=== PATIENT | female | born 1965 | race Caucasian/White ===

== ENCOUNTER 2016-02-24 09:23 | Emergency (ER) | payer OTHER ==
[2016-02-24] MEDS ORDERED: HYDROmorphone 1 MG/ML 1 ML SYRINGE IVP STA (10:31)
[2016-02-24] MEDS ORDERED: KETOROLAC 60 MG/2 ML VIAL IVP STA (10:31)
[2016-02-24] MEDS ORDERED: ONDANSETRON 4 MG/2 ML VIAL IVP STA (10:31)
--- NOTE | 2016-02-24 10:37 | ED ---
General Adult HPI - General Chief complaint: Back Pain/Injury Stated complaint: Back pain Time Seen by Provider: 02/24/16 10:00 Source: patient, RN notes reviewed Mode of arrival: ambulatory Limitations: no limitations - History of Present Illness Initial comments: This is a 51-year-old female who presents to the emergency department complaining of lower back pain. Patient states she's had 2 previous surgeries one of which involved placement of a cage. Patient states she started having pain on Monday should she took a warm shower and while in the shower the pain got so severe she couldn't stand it anymore she slowly sat down and needed assistance getting out of the tub. According to her at that point her right leg had complete paralysis in that lasted until last night when he started to slowly come back and now she states she can move it but it hurts so bad it makes it difficult for her to move. She states the pain radiates from her lower back down to the posterior aspect of her right knee patient denies any injury or trauma. Patient denies any urinary incontinence or retention. Patient denies any numbness in patient denies any area of weakness. Patient states the pain is so bad now she has become very nauseated. Patient could not get around on her own she needs assistance. When I ask her if the pain was causing her not able move her leg over the last couple of days she believes that she was unable to move it even if she didn't have the pain. Patient denies any recent fever or chills patient denies any recent procedures on her back. - Related Data Home Medications Medication Instructions Recorded Confirmed ARIPiprazole [Abilify] 5 mg PO HS 09/08/14 02/24/16 Albuterol Inhaler [Ventolin 2 puff INHALATION RT-Q6H PRN 09/08/14 02/24/16 Inhaler] Ibuprofen [Advil] 800 mg PO Q8HR PRN 09/08/14 02/24/16 Montelukast [Singulair] 10 mg PO HS 09/08/14 02/24/16 Omalizumab [Xolair] 150 mg SQ Q30D 09/08/14 02/24/16 clonazePAM [KlonoPIN] 0.5 mg PO BID 09/08/14 02/24/16 Albuterol Nebulized [Ventolin 2.5 mg INHALATION RT-Q6H PRN 02/24/16 02/24/16 Nebulized] Sertraline [Zoloft] 50 mg PO DAILY 02/24/16 02/24/16 Previous Rx's Medication Instructions Recorded Hydrocodone/Acetaminophen [[place] 1 each PO Q4HR PRN #20 tab 02/24/16 5-325] predniSONE 60 mg PO DAILY #5 tab 02/24/16 Allergies Allergy/AdvReac Type Severity Reaction Status Date / Time adhesive Allergy SKIN Verified 02/24/16 09:57 BLISTERS cinnamon Allergy Unknown Verified 02/24/16 09:57 grass pollen Allergy Unknown Verified 02/24/16 09:57 morphine AdvReac Severe ABD PAIN, Verified 02/24/16 09:57 N/V Review of Systems ROS Statement: Those systems with pertinent positive or pertinent negative responses have been documented in the HPI. ROS Other: All systems not noted in ROS Statement are negative. Past Medical History Past Medical History: Asthma, Osteoarthritis (OA), Sleep Apnea/CPAP/BIPAP History of Any Multi-Drug Resistant Organisms: MRSA Date of last positivie culture/infection: 02/2014 MDRO Source:: BOIL ON RT LEG Past Surgical History: Back Surgery, Section, Hysterectomy, Tubal Ligation Past Anesthesia/Blood Transfusion Reactions: No Reported Reaction Past Psychological History: Anxiety, Depression Smoking Status: Former smoker Past Alcohol Use History: None Reported Past Drug Use History: None Reported - Past Family History Father Family Medical History: Cancer General Exam - General Exam Comments Initial Comments: GENERAL: Patient is well-developed and well-nourished. Patient is nontoxic and well- hydrated and is in moderate distress. ENT: Neck is soft and supple. No significant lymphadenopathy is noted. Oropharynx is clear. Moist mucous membranes. Neck has full range of motion without eliciting any pain. EYES: The sclera were anicteric and conjunctiva were pink and moist. Extraocular movements were intact and pupils were equal round and reactive to light. Eyelids were unremarkable. PULMONARY: Unlabored respirations. Good breath sounds bilaterally. No audible rales rhonchi or wheezing was noted. CARDIOVASCULAR: There is a regular rate and rhythm without any murmurs gallops or rubs. ABDOMEN: Soft and nontender with normal bowel sounds. No palpable organomegaly was noted. There is no palpable pulsatile mass. SKIN: Skin is clear with no lesions or rashes and otherwise unremarkable. NEUROLOGIC: Patient is alert and oriented x3. Cranial nerves II through XII are grossly intact. Motor and sensory are also intact. Normal speech, volume and content. Symmetrical smile. Patient has a straight leg positive test on the right at about 20 on the left about 45. Patient has normal perineum sensation. Patient has normal strength bilaterally and normal sensation bilaterally MUSCULOSKELETAL: Normal extremities with adequate strength and full range of motion. No lower extremity swelling or edema. No calf tenderness. LYMPHATICS: No significant lymphadenopathy is noted PSYCHIATRIC: Normal psychiatric evaluation. Limitations: no limitations Course Vital Signs 02/24/16 02/24/16 09:48 10:56 Temperature 97.4 F L Pulse Rate 65 65 Respiratory 18 14 Rate Blood Pressure 146/68 122/59 O2 Sat by Pulse 98 95 Oximetry Medical Decision Making - Medical Decision Making CT of the back shows no acute injury there is some narrowing of the foramen and some disc bulging but none into the spinal canal. I will back and reevaluate the patient patient stated she is feeling much better and thought she could go home now to follow-up with a neurosurgeon. Disposition Clinical Impression: Sciatica Disposition: HOME SELF-CARE Condition: Good Instructions: Sciatica (ED) Prescriptions: Hydrocodone/Acetaminophen [[place] 5-325] 1 each PO Q4HR PRN #20 tab PRN Reason: Pain predniSONE 60 mg PO DAILY #5 tab Referrals: Zev Saez MD [Primary Care Provider] - 1-2 days Time of Disposition: 12:12
--- NOTE | 2016-02-24 11:41 | CT ---
EXAMINATION TYPE: CT lumbar spine wo con DATE OF EXAM: 02/24/2016 11:28 AM COMPARISON: MRI 09/29/2014 HISTORY: 51-year-old female fell and hit back of head yesterday. Patient complains of severe headach e since fall. TECHNIQUE: Contiguous axial scanning of the lumbar spine without IV contrast. Coronal and sagittal re constructions performed. CT DLP: 968 mGycm Automated exposure control for dose reduction was used. FINDINGS: Vertebral body heights are preserved and alignment is maintained. There is L5-S1 posterior and interbody fusion with satisfactory interbody ankylosis. The left-sided L5 transpedicular screw shows similar extension beyond the left anterolateral vertebra l body cortex but this is a chronic finding. Otherwise, uncomplicated appearance to the orthopedic gaviria rdware. Mild bulging discs are seen from L1 through L5 levels. Bony changes on the left at L5-S1 appear increased and cause a mild to moderate narrowing of the left neuroforamen. Otherwise, no significant neuroforaminal stenosis is seen. No saleem canal compromise. No prevertebral or paravertebral soft tissue abnormality. IMPRESSION: 1. POSTOPERATIVE CHANGES OF L5-S1 POSTERIOR AND INTERBODY FUSION. THE LEFT-SIDED L5 TRANSPEDICULAR SC REW EXTENDS BEYOND THE LEFT ANTEROLATERAL VERTEBRAL BODY CORTEX BUT THIS IS A CHRONIC FINDING. 2. NO VERTEBRAL COMPRESSION COLLAPSE OR MALALIGNMENT. 3. THERE IS MILD TO MODERATE BONY NEUROFORAMINAL NARROWING ON THE LEFT AT L5-S1. NO HIGH-GRADE FORAMI NAL NARROWING SEEN. 4. MILD DISC BULGES THROUGHOUT THE LUMBAR SPINE FROM L1 THROUGH L5 LEVELS. NO SALEEM CANAL COMPROMISE.
[2016-02-24] MEDS ORDERED: methylPREDNISolone SOD SUCCI 125 MG/2 ML VIAL IV STA (12:13)
[2016-02-24 12:50] VITALS: BP 118/78; PULSE 62; RESP 16; TEMP 98
== END 2016-02-24 12:36 | disposition home or self-care (01) ==
LOC: EC 09:23
DX: M54.31 Sciatica, right side (principal); G47.30 Sleep apnea, unspecified; J45.909 Unspecified asthma, uncomplicated; F41.9 Anxiety disorder, unspecified; F32.9 Major depressive disorder, single episode, unspecified; Z88.5 Allergy status to narcotic agent; Z91.048 Other nonmedicinal substance allergy status; Z91.018 Allergy to other foods; Z87.891 Personal history of nicotine dependence; Z79.899 Other long term (current) drug therapy
CPT/HCPCS: 72131; 99283; 96374; 96375 ×2; J2405; J1885; J1170

== ENCOUNTER → 2016-10-27 | Outpatient (CLI) | payer OTHER ==
--- NOTE | 2016-10-27 12:18 | PN ---
PROGRESS NOTE DATE OF SERVICE: 10/27/2016 A 51-year-old lady has been followed in sleep center for treatment of obstructive sleep apnea-hypopnea syndrome. She continued to use her CPAP successfully every night according to the patient and she does not snores and does not wake up. She feel well during the day. [place] Sleepiness Scale is 4. She is using a full face mask. I checked patient's CPAP unit. Usage is 100% of the time more than 4 hours. Average pressure in the range between 13.2 and 15 is automatic regimen from 5 to 16 cm of water. Apnea-hypopnea index reading is only 1.4, which is totally normal. MEDICATIONS: Zoloft, Risperdal, Klonopin, albuterol. PHYSICAL EXAMINATION: GENERAL: During physical exam, a 51-year-old lady without any distress. VITAL SIGNS: BP 105/67, HR 72, RR 16, height 5 feet 3 inches, weight 206.6, BMI 36.4. Patient increased her weight of around 5 pounds since previous visit. HEENT: PERRLA. EOMI. Moderately low position of soft palate. NECK: Supple, no JVD. Thyroid is not palpable. LUNGS: Clear to percussion and to auscultation. Good air exchange. No wheezing or rhonchi. HEART: S1, S2 regular. No murmurs, gallops, or rubs. ABDOMEN: Slightly obese. EXTREMITIES: No clubbing or cyanosis. SEWER PIPE LAYER: Awake, alert, and oriented X3. Cranial nerves 2 to 7 intact. There is no fasciculation or atrophy. noted. No focal deficits observed. IMPRESSION: 1. Severe obstructive sleep apnea-hypopnea syndrome. The patient demonstrated 100% compliance with treatment benefitting from treatment. 2. Asthma. 3. Obesity. 4. Depression. PLAN: 1. Continue treatment with CPAP every night for the whole night. 2. Prescription for all necessary CPAP supplies including mask, tube, filters. 3. Losing weight. 4. No driving if feeling any sleepiness. 5. Followup visit in 1 year. Thank you very much for allowing me to participate in management of your patient. Sincerely, Michelet Guillaume MD, PhD, FAASM Diplomat of [place] [employer] [place] [employer] Ethylene Plant Operator of [facility] [place] MMODL / IJN: [id number] /
== END ==
LOC: SLEEP 10:40
PROVIDERS: ATTEND Internal Medicine
DX: G47.33 Obstructive sleep apnea (adult) (pediatric) (principal); J45.909 Unspecified asthma, uncomplicated; E66.9 Obesity, unspecified; F32.9 Major depressive disorder, single episode, unspecified

== ENCOUNTER → 2017-04-12 | Outpatient (CLI) | payer OTHER | END | disposition home or self-care (01) | LOC: LABWHC1 10:44 | PROVIDERS: ATTEND Internal Medicine Pulmonary Disease | DX: F17.200 Nicotine dependence, unspecified, uncomplicated (principal) | CPT/HCPCS: 36415; G0480; 80323 ==

== ENCOUNTER → 2017-06-10 | Outpatient (CLI) | payer OTHER ==
--- NOTE | 2017-06-12 11:06 | MM ---
Reason for exam: screening (asymptomatic). Last mammogram was performed 1 year and 1 month ago. History: Patient is postmenopausal. Physical Findings: A clinical breast exam by your physician is recommended on an annual basis and results should be correlated with mammographic findings. MG 3D Screening Mammo W/Cad Bilateral CC and MLO view(s) were taken. Prior study comparison: April 27, 2016, mammogram, performed at [facility]. April 23, 2015, mammogram, performed at [facility]. There are scattered fibroglandular densities. No suspicious abnormality. No significant changes when compared with prior studies. ASSESSMENT: Negative, BI-RAD 1 RECOMMENDATION: Routine screening mammogram of both breasts in 1 year.
== END | disposition home or self-care (01) ==
LOC: RADMAMWWP 10:47
PROVIDERS: ATTEND Pediatrics
DX: Z12.31 Encounter for screening mammogram for malignant neoplasm of breast (principal)
CPT/HCPCS: 77063; 77067

== ENCOUNTER → 2017-12-07 | Outpatient (CLI) | payer OTHER ==
--- NOTE | 2017-12-07 17:24 | PN ---
PROGRESS NOTE DATE OF SERVICE: 12/07/2017 52-year-old lady has been followed in the sleep center for treatment of obstructive sleep apnea-hypopnea syndrome. Patient successfully continues to use her equipment every night without significant problems, except her insurance covers for replacement of mask only once a year and mask already old. [place] Sleepiness Scale today is 3. I checked patient's CPAP unit. Usage is 100% of the time, every 7 hours and 30 minutes a night. No significant leak. Apnea-hypopnea index 1.5 for the last month, which is absolutely perfect. MEDICATIONS: Risperdal, Zoloft, Klonopin, albuterol. PHYSICAL EXAM: Patient in no distress. BP 123/80, HR 68, RR 16, height 5 feet 3 inches, weight 194, which is 12 pounds less than during the last visit. Body mass index 34.3, temperature 97.5, oxygen saturation on room air 95%. Oropharynx moderately low position of soft palate. Abdomen slightly obese. Neck: Supple, no JVD. Thyroid is not palpable. LUNGS: Clear to percussion and to auscultation. Good air exchange. No wheezing or rhonchi. HEART: S1, S2 regular. No murmurs, gallops, or rubs. ABDOMEN: Obese. Soft and nontender. Bowel sounds are present. No organomegaly appreciated. EXTREMITIES: No clubbing or cyanosis. THREAD TOOL GRINDER SET UP OPERATOR: Awake, alert, and oriented X3. Cranial nerves 2 to 7 intact. There is no fasciculation or atrophy. noted. No focal deficits observed. IMPRESSION: 1. Obstructive sleep apnea-hypopnea syndrome, on full control with CPAP. The patient demonstrated 100% compliance with treatment benefitting from treatment. 2. Obesity, patient lost 12 pounds since previous visit. 3. Asthma. 4. Depression. PLAN: 1. Patient will continue to use her CPAP equipment every night for the whole night. 2. We will maintain prescription for all necessary CPAP supplies including mask, tube, filters. 3. Continue losing weight. 4. Sleep hygiene with regular time in bed for at least 8 hours. 5. No driving if feeling sleepiness. 6. Followup visit in 1 year or earlier if patient has any problems. Thank you very much for allowing me to participate in management of your patient. Sincerely, Michelet Guillaume MD, PhD, FAASM Diplomat of [place] [employer] [employer] Process Specialist of [facility] [place] MMODL / SHILOHN: [id number] /
== END ==
LOC: SLEEP 16:05
PROVIDERS: ATTEND Internal Medicine
DX: G47.33 Obstructive sleep apnea (adult) (pediatric) (principal); E66.9 Obesity, unspecified; J45.909 Unspecified asthma, uncomplicated; F32.9 Major depressive disorder, single episode, unspecified; Z99.89 Dependence on other enabling machines and devices; Z79.899 Other long term (current) drug therapy

== ENCOUNTER → 2018-07-13 | Outpatient (CLI) | payer OTHER ==
--- NOTE | 2018-07-16 13:13 | MM ---
Reason for exam: screening (asymptomatic). Last mammogram was performed 1 year and 1 month ago. History: Patient is postmenopausal. Physical Findings: A clinical breast exam by your physician is recommended on an annual basis and results should be correlated with mammographic findings. MG 3D Screening Mammo W/Cad Bilateral CC and MLO view(s) were taken. Prior study comparison: June 10, 2017, bilateral MG 3d screening mammo w/cad. April 27, 2016, mammogram, performed at [facility]. There are scattered fibroglandular densities. There is chronic nodularity in the left breast. No significant changes when compared with prior studies. ASSESSMENT: Benign, BI-RAD 2 RECOMMENDATION: Routine screening mammogram of both breasts in 1 year.
== END | disposition home or self-care (01) ==
LOC: RADMAMWWP 16:05
PROVIDERS: ATTEND Family Medicine
DX: Z12.31 Encounter for screening mammogram for malignant neoplasm of breast (principal)
CPT/HCPCS: 77063; 77067

== ENCOUNTER 2018-09-17 08:30 | Emergency (ER) | payer OTHER ==
[2018-09-17] MEDS ORDERED: KETOROLAC 60 MG/2 ML VIAL IVP STA (08:57)
[2018-09-17] MEDS ORDERED: MECLIZINE 25 MG TAB PO STA (08:57)
[2018-09-17] MEDS ORDERED: ONDANSETRON 4 MG/2 ML VIAL IVP STA (08:57)
--- NOTE | 2018-09-17 09:10 | ED ---
General Adult HPI - General Chief complaint: Syncope Stated complaint: dizzy, syncope 2 days ago Time Seen by Provider: 09/17/18 08:35 Source: patient, RN notes reviewed Mode of arrival: wheelchair Limitations: no limitations - History of Present Illness Initial comments: This is a 53-year-old female who presents emergency Department after having injured her right luciano on Monday night feeling immediately nauseous consult the pain was so bad and then passing out for about 30 seconds according to her . Patient did not get injured when she passed out she was already lying down because of the pain. Patient states since then the patient still is there and she is able to walk on the leg but it does still hurt. Patient states she's had no chest pain anytime she denying any shortness of breath or difficulty breathing. Patient denies any lightheadedness since she had passed out. Patient states complaint today is the fact that she still feels like she is on the boat and she has a little spinning sensation. Patient states she has a his tory of vertigo her last episode was one year ago. Patient does states she has a little nauseated since this time. Patient denies any recent fever chills or cough. Patient denies any headache patient denies numbness weakness. Patient denies any neck pain. - Related Data Home Medications Medication Instructions Recorded Confirmed Albuterol Inhaler [Ventolin 2 puff INHALATION RT-Q6H PRN 09/08/14 09/17/18 Inhaler] Montelukast [Singulair] 10 mg PO HS 09/08/14 09/17/18 Omalizumab [Xolair] 150 mg SQ Q30D 09/08/14 09/17/18 Albuterol Nebulized [Ventolin 2.5 mg INHALATION RT-Q6H PRN 02/24/16 09/17/18 Nebulized] Beclomethasone Dip 80 Mcg/Puff 2 puff INHALATION RT-BID 11/17/16 09/17/18 [Qvar] Ibuprofen [Motrin] 800 mg PO Q8H PRN 11/17/16 09/17/18 Previous Rx's Medication Instructions Recorded Meclizine [Antivert] 25 mg PO TID #20 tab 09/17/18 Allergies Allergy/AdvReac Type Severity Reaction Status Date / Time adhesive Allergy SKIN Verified 09/17/18 09:14 BLISTERS cinnamon Allergy Unknown Verified 09/17/18 09:14 grass pollen Allergy Unknown Verified 09/17/18 09:14 morphine AdvReac Severe ABD PAIN, Verified 09/17/18 09:14 N/V Review of Systems ROS Statement: Those systems with pertinent positive or pertinent negative responses have been documented in the HPI. ROS Other: All systems not noted in ROS Statement are negative. Past Medical History Past Medical History: Asthma, Osteoarthritis (OA), Sleep Apnea/CPAP/BIPAP History of Any Multi-Drug Resistant Organisms: MRSA Date of last positivie culture/infection: 01/18/17 MDRO Source:: RIGHT LEG Past Surgical History: Back Surgery, Section, Hysterectomy, Tubal Ligation Past Anesthesia/Blood Transfusion Reactions: No Reported Reaction Past Psychological History: Anxiety, Depression Smoking Status: Current every day smoker Past Alcohol Use History: None Reported Past Drug Use History: Marijuana - Past Family History Father Family Medical History: Cancer General Exam - General Exam Comments Initial Comments: GENERAL: Patient is well-developed and well-nourished. Patient is nontoxic and well- hydrated and is in mild distress. ENT: Neck is soft and supple. No significant lymphadenopathy is noted. Oropharynx is clear. Moist mucous membranes. Neck has full range of motion without eliciting any pain. EYES: The sclera were anicteric and conjunctiva were pink and moist. Extraocular movements were intact and pupils were equal round and reactive to light. Eyelids were unremarkable. PULMONARY: Unlabored respirations. Good breath sounds bilaterally. No audible rales rhonchi or wheezing was noted. CARDIOVASCULAR: There is a regular rate and rhythm without any murmurs gallops or rubs. ABDOMEN: Soft and nontender with normal bowel sounds. No palpable organomegaly was noted. There is no palpable pulsatile mass. SKIN: Skin is clear with no lesions or rashes and otherwise unremarkable. NEUROLOGIC: Patient is alert and oriented x3. Cranial nerves II through XII are grossly intact. Motor and sensory are also intact. Normal speech, volume and content. Symmetrical smile. Finger to nose cerebellar testing is normal bilaterally MUSCULOSKELETAL: Normal extremities with adequate strength and full range of motion. Anterior right luciano is very tender to touch there is no bruising or ecchymosis or disruption of the skin No lower extremity swelling or edema. No calf tenderness. LYMPHATICS: No significant lymphadenopathy is noted PSYCHIATRIC: Normal psychiatric evaluation. Limitations: no limitations Course Vital Signs 09/17/18 09/17/18 09/17/18 08:36 09:16 10:26 Temperature 97.7 F Pulse Rate 63 60 62 Respiratory 18 16 16 Rate Blood Pressure 145/84 119/70 117/60 O2 Sat by Pulse 98 99 97 Oximetry Medical Decision Making - Medical Decision Making EKG shows normal sinus rhythm at 67 bpm WV interval is 172 QRS is 78 QT interval is 410 QTC is 433. Patient's EKG shows no ST segment elevation or depression or T wave abnormalities are noted. Patient's x-ray of the tibia was normal. I gave the patient Antivert and she was ambulated thereafter and she felt considerably better. - Lab Data Result diagrams: 09/17/18 08:52 09/17/18 08:52 Lab Results 09/17/18 09/17/18 09/17/18 Range/Units 08:52 08:52 08:52 WBC 13.5 H (3.8-10.6) k/uL RBC 5.13 (3.80-5.40) m/uL Hgb 14.8 (11.4-16.0) gm/dL Hct 46.4 H (34.0-46.0) % MCV 90.5 (80.0-100.0) fL MCH 28.8 (25.0-35.0) pg MCHC 31.8 (31.0-37.0) g/dL RDW 13.7 (11.5-15.5) % Plt Count 343 (150-450) k/uL Neutrophils % 71 % Lymphocytes % 22 % Monocytes % 5 % Eosinophils % 2 % Basophils % 0 % Neutrophils # 9.5 H (1.3-7.7) k/uL Lymphocytes # 2.9 (1.0-4.8) k/uL Monocytes # 0.6 (0-1.0) k/uL Eosinophils # 0.2 (0-0.7) k/uL Basophils # 0.1 (0-0.2) k/uL PT 10.3 (9.0-12.0) sec INR 1.0 (<1.2) APTT 26.2 (22.0-30.0) sec Sodium 143 (137-145) mmol/L Potassium 4.7 (3.5-5.1) mmol/L Chloride 108 H (98-107) mmol/L Carbon Dioxide 26 (22-30) mmol/L Anion Gap 9 mmol/L BUN 12 (7-17) mg/dL Creatinine 0.68 (0.52-1.04) mg/dL Est GFR (CKD-EPI)AfAm >90 (>60 ml/min/1.73 sqM) Est GFR (CKD-EPI)NonAf >90 (>60 ml/min/1.73 sqM) Glucose 99 (74-99) mg/dL Calcium 9.9 (8.4-10.2) mg/dL Magnesium 2.1 (1.6-2.3) mg/dL Total Bilirubin 0.3 (0.2-1.3) mg/dL AST 20 (14-36) U/L ALT 19 (9-52) U/L Alkaline Phosphatase 84 (38-126) U/L Troponin I (0.000-0.034) ng/mL Total Protein 7.2 (6.3-8.2) g/dL Albumin 4.4 (3.5-5.0) g/dL 09/17/18 Range/Units 08:52 WBC (3.8-10.6) k/uL RBC (3.80-5.40) m/uL Hgb (11.4-16.0) gm/dL Hct (34.0-46.0) % MCV (80.0-100.0) fL MCH (25.0-35.0) pg MCHC (31.0-37.0) g/dL RDW (11.5-15.5) % Plt Count (150-450) k/uL Neutrophils % % Lymphocytes % % Monocytes % % Eosinophils % % Basophils % % Neutrophils # (1.3-7.7) k/uL Lymphocytes # (1.0-4.8) k/uL Monocytes # (0-1.0) k/uL Eosinophils # (0-0.7) k/uL Basophils # (0-0.2) k/uL PT (9.0-12.0) sec INR (<1.2) APTT (22.0-30.0) sec Sodium (137-145) mmol/L Potassium (3.5-5.1) mmol/L Chloride (98-107) mmol/L Carbon Dioxide (22-30) mmol/L Anion Gap mmol/L BUN (7-17) mg/dL Creatinine (0.52-1.04) mg/dL Est GFR (CKD-EPI)AfAm (>60 ml/min/1.73 sqM) Est GFR (CKD-EPI)NonAf (>60 ml/min/1.73 sqM) Glucose (74-99) mg/dL Calcium (8.4-10.2) mg/dL Magnesium (1.6-2.3) mg/dL Total Bilirubin (0.2-1.3) mg/dL AST (14-36) U/L ALT (9-52) U/L Alkaline Phosphatase (38-126) U/L Troponin I <0.012 (0.000-0.034) ng/mL Total Protein (6.3-8.2) g/dL Albumin (3.5-5.0) g/dL Disposition Clinical Impression: Vertigo, Contusion of leg Disposition: HOME SELF-CARE Condition: Good Prescriptions: Meclizine [Antivert] 25 mg PO TID #20 tab Is patient prescribed a controlled substance at d/c from ED?: No Referrals: Heraclio Castañeda MD [Primary Care Provider] - 1-2 days Time of Disposition: 11:06
[2018-09-17 09:17] VITALS: RESP 16
[2018-09-17 09:19] LABS: Basophils # (A) 0.1 k/uL (0-0.2); Basophils % (A) 0 %; Eosinophils # (A) 0.2 k/uL (0-0.7); Eosinophils % (A) 2 %; HCT 46.4 % (34.0-46.0); HGB 14.8 gm/dL (11.4-16.0); Lymphocytes # (A) 2.9 k/uL (1.0-4.8); Lymphocytes % (A) 22 %; MCH 28.8 pg (25.0-35.0); MCHC 31.8 g/dL (31.0-37.0); MCV 90.5 fL (80.0-100.0); Monocytes # (A) 0.6 k/uL (0-1.0); Monocytes % (A) 5 %; Neutrophils # (A) 9.5 k/uL (1.3-7.7); Neutrophils % (A) 71 %; Platelet Count 343 k/uL (150-450); RBC 5.13 m/uL (3.80-5.40); RDW 13.7 % (11.5-15.5); WBC 13.5 k/uL (3.8-10.6)
[2018-09-17 09:29] LABS: Partial Thromboplastin Time 26.2 sec (22.0-30.0); Prothrombin Time 10.3 sec (9.0-12.0)
[2018-09-17 09:32] LABS: ALT 19 U/L (9-52); AST 20 U/L (14-36); African American GFR (CKD) >90 (>60 ml/min/1.73 sqM); Albumin 4.4 g/dL (3.5-5.0); Alkaline Phosphatase 84 U/L (38-126); Anion Gap 9 mmol/L; Blood Urea Nitrogen 12 mg/dL (7-17); Calcium 9.9 mg/dL (8.4-10.2); Carbon Dioxide 26 mmol/L (22-30); Chloride 108 mmol/L (98-107); Glucose 99 mg/dL (74-99); Magnesium 2.1 mg/dL (1.6-2.3); Non-African American GFR(CKD) >90 (>60 ml/min/1.73 sqM); Potassium 4.7 mmol/L (3.5-5.1); Sodium 143 mmol/L (137-145); Total Bilirubin 0.3 mg/dL (0.2-1.3); Total Protein 7.2 g/dL (6.3-8.2)
--- NOTE | 2018-09-17 09:38 | XR ---
EXAMINATION TYPE: XR tibia fibula RT DATE OF EXAM: 09/17/2018 COMPARISON: NONE HISTORY: Pain TECHNIQUE: Two views are submitted. FINDINGS: The osseous structures are intact. Severe arthropathy medial compartment of the knee. IMPRESSION: 1. No acute osseous abnormality. 2. Severe left knee arthropathy.
--- NOTE | 2018-09-17 09:40 | XR ---
EXAMINATION TYPE: XR chest 2V DATE OF EXAM: 09/17/2018 COMPARISON: NONE HISTORY: Shortness of breath TECHNIQUE: Frontal and lateral views of the chest are obtained. FINDINGS: Scattered senescent parenchymal changes noted. Hyperinflation compatible with COPD. No evidence for infiltrate. No evidence for atelectasis. Heart size is stable. Mediastinal structures are stable and grossly unremarkable. No evidence for hilar prominence. Degenerative changes dorsal spine. IMPRESSION: 1. No evidence for acute pulmonary disease.
[2018-09-17 11:14] VITALS: BP 133/76; PULSE 78; TEMP 98.3
== END 2018-09-17 11:13 | disposition home or self-care (01) ==
LOC: EC 08:30
DX: S80.12XA Contusion of left lower leg, initial encounter (principal); R42 Dizziness and giddiness; R11.0 Nausea; J45.909 Unspecified asthma, uncomplicated; F17.200 Nicotine dependence, unspecified, uncomplicated; G47.30 Sleep apnea, unspecified; Z99.89 Dependence on other enabling machines and devices; Z86.14 Personal history of Methicillin resistant Staphylococcus aureus infection; Z79.51 Long term (current) use of inhaled steroids; Z79.899 Other long term (current) drug therapy; Z91.048 Other nonmedicinal substance allergy status; Z91.018 Allergy to other foods; Z88.5 Allergy status to narcotic agent; W22.8XXA Striking against or struck by other objects, initial encounter
CPT/HCPCS: 36415; 93005; 80053; 83735; 84484; 85025; 85610; 85730; 73590; 71046; 99284; 96374; 96375; J2405; J1885

== ENCOUNTER → 2019-01-17 | Outpatient (CLI) | payer OTHER ==
--- NOTE | 2019-01-17 17:32 | PN ---
PROGRESS NOTE DATE OF SERVICE: 01/17/2019 This patient is a 53-year-old lady who [facility] of obstructive sleep apnea-hypopnea syndrome. The patient continues to use her equipment every night for the whole night. No snoring with the machine. Mccool Sleepiness Scale today is 5, which is normal. I checked her CPAP unit. The patient is using it every night for more than 4 hours, with average usage 8.3 hours per night. No significant leak. Range of the pressure is from 5 to 15 with average pressure 14.1. Apnea-hypopnea index is 1.6, which is normal. MEDICATIONS: 1. Allergy shots. 2. Risperdal. 3. Zoloft. 4. Klonopin. 5. Albuterol. PHYSICAL EXAMINATION: GENERAL: A pleasant patient in no distress. VITAL SIGNS: BP 133/77, HR 75, RR 16. Height 5 feet 3 inches. Weight 193.0. Body mass index 34.0. Temperature 98.1. Oxygen saturation at room air 94%. HEENT: PERRLA, EOMI. Evaluation of oropharynx showed tongue protrudes midline. Moderately low position of soft palate. Mallampati II to III. NECK: Supple. No JVD. Thyroid is not palpable. LUNGS: Clear to percussion and to auscultation. Good air exchange. No wheezing or rhonchi. HEART: S1, S2 regular. No murmurs, gallops or rubs. ABDOMEN: Slightly obese. EXTREMITIES: No clubbing or cyanosis. VOCATIONAL COUNSELOR: Awake, alert, and oriented X3. Cranial nerves 2 to 7 intact. There is no fasciculation or atrophy. noted. No focal deficits observed. IMPRESSION: 1. Obstructive sleep apnea-hypopnea syndrome. The patient has demonstrated 100% compliance with treatment, benefitting from treatment. 2. Obesity. 3. Asthma. 4. History of depression. PLAN: 1. Patient will continue to use CPAP equipment every night for the whole night. 2. Prescription for all necessary CPAP supplies, including prescription for a new CPAP unit. CPAP unit is old. 3. Losing weight. 4. No driving if feeling any sleepiness. Thank you very much for allowing me to participate in the management of your patient. Sincerely, Michelet Guillaume MD, PhD, FAASM Diplomat of [place] [employer] [place] [employer] Senior Environmental Practice Leader of [facility] [place] [email or web address] / IJN: [id number] /
== END ==
LOC: SLEEP 16:02
PROVIDERS: ATTEND Internal Medicine
DX: G47.33 Obstructive sleep apnea (adult) (pediatric) (principal); E66.9 Obesity, unspecified; J45.909 Unspecified asthma, uncomplicated; F32.9 Major depressive disorder, single episode, unspecified; Z99.89 Dependence on other enabling machines and devices; Z79.899 Other long term (current) drug therapy

== ENCOUNTER → 2019-08-22 | Outpatient (CLI) | payer OTHER ==
--- NOTE | 2019-08-26 08:13 | MM ---
Reason for exam: screening (asymptomatic). Last mammogram was performed 1 year and 1 month ago. History: Patient is postmenopausal. Took hormonal contraceptives for 4 years. Physical Findings: A clinical breast exam by your physician is recommended on an annual basis and results should be correlated with mammographic findings. MG 3D Screening Mammo W/Cad Bilateral CC and MLO view(s) were taken. Prior study comparison: July 13, 2018, bilateral MG 3d screening mammo w/cad. June 10, 2017, bilateral MG 3d screening mammo w/cad. The breast tissue is heterogeneously dense. This may lower the sensitivity of mammography. No significant changes when compared with prior studies. ASSESSMENT: Benign, BI-RAD 2 RECOMMENDATION: Routine screening mammogram of both breasts in 1 year.
== END | disposition home or self-care (01) ==
LOC: RADMAMWWP 15:45
PROVIDERS: ATTEND Family Medicine
DX: Z12.39 Encounter for other screening for malignant neoplasm of breast (principal)
CPT/HCPCS: 77063; 77067

== ENCOUNTER → 2020-09-11 | Outpatient (CLI) | payer OTHER ==
--- NOTE | 2020-09-15 08:59 | MM ---
Reason for exam: screening (asymptomatic). Last mammogram was performed 1 year and 1 month ago. History: Patient is postmenopausal. Took hormonal contraceptives for 4 years. Physical Findings: A clinical breast exam by your physician is recommended on an annual basis and results should be correlated with mammographic findings. MG 3D Screening Mammo W/Cad Bilateral CC and MLO view(s) were taken. Prior study comparison: August 22, 2019, bilateral MG 3d screening mammo w/cad. July 13, 2018, bilateral MG 3d screening mammo w/cad. There are scattered fibroglandular densities. There is chronic nodularity in the left breast. No significant changes when compared with prior studies. ASSESSMENT: Negative, BI-RAD 1 RECOMMENDATION: Routine screening mammogram of both breasts in 1 year.
== END | disposition home or self-care (01) ==
LOC: RADMAMWWP 16:10
PROVIDERS: ATTEND Family Medicine
DX: Z12.31 Encounter for screening mammogram for malignant neoplasm of breast (principal); Z78.0 Asymptomatic menopausal state; Z79.3 Long term (current) use of hormonal contraceptives
CPT/HCPCS: 77063; 77067

== ENCOUNTER → 2021-09-21 | Outpatient (CLI) | payer OTHER ==
--- NOTE | 2021-09-22 19:39 | MM ---
Reason for Exam: Screening (asymptomatic). Last screening mammogram was performed 12 month(s) ago. Patient History: Menarche at age 11. First Full-Term at age 14. Left ovary removed at age 42. Right ovary removed at age 42. Hysterectomy at age 42. Postmenopausal. Patient used Hormonal Contraceptives for 4 years. Risk Values: Ashley 5 year model risk: 1.0%. NCI Lifetime model risk: 5.6%. Prior Study Comparison: 07/13/2018 Bilateral Screening Mammogram, [facility]. 08/22/2019 Bilateral Screening Mammogram, [facility]. 09/11/2020 Bilateral Screening Mammogram, [facility]. Tissue Density: There are scattered fibroglandular densities. Findings: Analyzed By CAD. There is no suspicious group of microcalcifications or new suspicious mass in either breast. Overall Assessment: Negative, BI-RAD 1 Management: Screening Mammogram of both breasts in 1 year. 1. Patient should continue monthly self breast exams. 2. A clinical breast exam by your physician is recommended on an annual basis. 3. This exam should not preclude additional follow-up of suspicious palpable abnormalities. Electronically signed and approved by: Jun Echeverria M.D. Radiologist
== END | disposition home or self-care (01) ==
LOC: RADMAMWWP 10:28
PROVIDERS: ATTEND Pediatrics
DX: Z12.31 Encounter for screening mammogram for malignant neoplasm of breast (principal); Z78.0 Asymptomatic menopausal state
CPT/HCPCS: 77063; 77067

== ENCOUNTER → 2022-10-26 | Outpatient (CLI) | payer OTHER ==
--- NOTE | 2022-10-27 11:23 | MM ---
Reason for Exam: Screening (asymptomatic). Last mammogram was performed 1 year(s) and 1 month(s) ago. Patient History: Menarche at age 11. First Full-Term at age 14. Left ovary removed at age 42. Right ovary removed at age 42. Hysterectomy at age 42. Postmenopausal. Patient used Hormonal Contraceptives for 4 years. Risk Values: Ashley 5 year model risk: 1.0%. NCI Lifetime model risk: 5.5%. Prior Study Comparison: 08/22/2019 Bilateral Screening Mammogram, [facility]. 09/11/2020 Bilateral Screening Mammogram, [facility]. 09/21/2021 Bilateral MG 3D screening mammo w/cad, [facility]. Tissue Density: There are scattered fibroglandular densities. Findings: Analyzed By CAD. There is no suspicious group of microcalcifications or new suspicious mass in either breast. A punctate benign-appearing calcifications. Overall Assessment: Benign, BI-RAD 2 Management: Screening Mammogram of both breasts in 1 year. . Patient should continue monthly self-breast exams. A clinical breast exam by your physician is recommended on an annual basis. This exam should not preclude additional follow-up of suspicious palpable abnormalities. Note on Ashley scores and lifetime risk: 1. A Ashley score greater than 3% is considered moderate risk. If this is the case, consider specialist referral to assess eligibility for a risk reducing agent. 2. If overall lifetime risk for the development of breast cancer is 20% or higher, the patient may qualify for future screening with alternating mammogram and breast MRI. Electronically signed and approved by: Vasile Fofana M.D. Radiologis
== END | disposition home or self-care (01) ==
LOC: RADMAMWWP 16:31
PROVIDERS: ATTEND Pediatrics
DX: Z12.31 Encounter for screening mammogram for malignant neoplasm of breast (principal); Z78.0 Asymptomatic menopausal state
CPT/HCPCS: 77063; 77067

== ENCOUNTER 2023-07-29 15:19 | Emergency (ER) | payer OTHER ==
[2023-07-29 15:31] VITALS: RESP 18
--- NOTE | 2023-07-29 15:43 | ED ---
Nausea/Vomiting/Diarrhea HPI - General Source: patient, EMS, RN notes reviewed Mode of arrival: EMS Limitations: no limitations <Sandhya Tobar - Last Filed: 07/29/23 15:41> <Bo Gramajo - Last Filed: 07/29/23 19:27> - General Chief complaint: Nausea/Vomiting/Diarrhea Stated complaint: NVD Time Seen by Provider: 07/29/23 15:30 - History of Present Illness Initial comments: Quick noteis a 58-year-old female presents emergency department chief complaint of nausea, vomiting, and diffuse abdominal pain that started at 8 AM this morning. She denies chills or fevers. Patient denies radiating abdominal pain, dysuria, hematuria, increase in frequency or urgency. (Sandhya Tobar) 58-year-old female presenting to the ED with a chief complaint of nausea vomiting. Patient states when she woke up today onset of nausea vomiting. Also has had 1 episode of nonbloody diarrhea. Patient notes onset of abdominal pain with this as well. States initially diffuse and worse in her lower abdomen however now notes pain worse in the upper abdomen. No changes in bladder habits. Patient notes some chills. Also states that she has had "sinus issues" for the past week. No fever. History of hysterectomy in the past. Denies chest pain or shortness of breath. No other complaints at this time. (Bo Gramajo) - Related Data Home Medications Medication Instructions Recorded Confirmed Albuterol Inhaler [Ventolin 2 puff INHALATION RT-Q6H PRN 09/08/14 09/17/18 Inhaler] Montelukast [Singulair] 10 mg PO HS 09/08/14 09/17/18 Omalizumab [Xolair] 150 mg SQ Q30D 09/08/14 09/17/18 Albuterol Nebulized [Ventolin 2.5 mg INHALATION RT-Q6H PRN 02/24/16 09/17/18 Nebulized] Beclomethasone Dip 80 Mcg/Puff 2 puff INHALATION RT-BID 11/17/16 09/17/18 [Qvar] Ibuprofen [Motrin] 800 mg PO Q8H PRN 11/17/16 09/17/18 Previous Rx's Medication Instructions Recorded Meclizine [Antivert] 25 mg PO TID #20 tab 09/17/18 Acetaminophen Tab [Tylenol] 500 mg PO Q6H #60 tablet 07/29/23 Ibuprofen [Motrin] 600 mg PO Q8HR PRN #30 tab 07/29/23 Ondansetron Odt [Zofran Odt] 4 mg PO Q8HR PRN #10 tab 07/29/23 Allergies Allergy/AdvReac Type Severity Reaction Status Date / Time adhesive Allergy SKIN Verified 07/29/23 15:31 BLISTERS cinnamon Allergy Unknown Verified 07/29/23 15:31 grass pollen Allergy Unknown Verified 07/29/23 15:31 morphine AdvReac Severe ABD PAIN, Verified 07/29/23 15:31 N/V Review of Systems ROS Other: All systems not noted in ROS Statement are negative. <Sandhya Tobar - Last Filed: 07/29/23 15:41> ROS Other: All systems not noted in ROS Statement are negative. <Bo Gramajo - Last Filed: 07/29/23 19:27> ROS Statement: Those systems with pertinent positive or pertinent negative responses have been documented in the HPI. Past Medical History Past Medical History: Asthma, Osteoarthritis (OA), Sleep Apnea/CPAP/BIPAP History of Any Multi-Drug Resistant Organisms: MRSA Date of last positivie culture/infection: 01/18/17 MDRO Source:: RIGHT LEG Past Surgical History: Back Surgery, Section, Hysterectomy, Tubal Ligation Past Anesthesia/Blood Transfusion Reactions: No Reported Reaction Past Psychological History: Anxiety, Depression Smoking Status: Unknown if ever smoked Past Alcohol Use History: None Reported Past Drug Use History: Marijuana - Past Family History Father Family Medical History: Cancer <Sandhya Tobar - Last Filed: 07/29/23 15:41> General Exam Limitations: no limitations <Sandhya Tobar - Last Filed: 07/29/23 15:41> General appearance: alert Eye exam: Present: normal appearance Neck exam: Present: normal inspection Respiratory exam: Present: normal lung sounds bilaterally Cardiovascular Exam: Present: regular rate GI/Abdominal exam: Present: soft (Diffuse abdominal tenderness to palpation worse in the right upper quadrant. Bowel sounds present. No rebound guarding or rigidity. No distention.) Neurological exam: Present: alert, oriented X3 Skin exam: Present: warm, dry <Bo Gramajo - Last Filed: 07/29/23 19:27> - General Exam Comments Initial Comments: Visual Physical Exam Vital signs reviewed General: Well-appearing, nontoxic, no acute distress. Head: Normocephalic, atraumatic Eyes: PERRLA, EOMI ENT: Airway patent Chest: Nonlabored breathing Skin: No visual rash, normal skin tone Neuro: Alert and oriented 3 Musculoskeletal: No gross abnormalities (Sandhya Tobar) Course Vital Signs 07/29/23 15:26 Temperature 98.2 F Pulse Rate 68 Respiratory 18 Rate Blood Pressure 170/78 O2 Sat by Pulse 98 Oximetry Medical Decision Making <Sandhya Tobar - Last Filed: 07/29/23 15:41> - Lab Data Result diagrams: 07/29/23 17:11 07/29/23 17:11 <Bo Gramajo - Last Filed: 07/29/23 19:27> - Medical Decision Making I completed the quick note portion of this chart signed Sandhya Tobar PA-C (Sandhya Tobar) Was pt. sent in by a medical professional or institution ([facility], [facility], urgent care, hospital, or usp...) When possible be specific @ -No Did you speak to anyone other than the patient for history (EMS, parent, family, police, friend...)? What history was obtained from this source @ -No Did you review nursing and triage notes (agree or disagree)? Why? @ -I reviewed and agree with nursing and triage notes Were old charts reviewed (outside hosp., previous admission, EMS record, old EKG, old radiological studies, urgent care reports/EKG's, usp records)? Report findings @ -No old charts were reviewed Differential Diagnosis (chest pain, altered mental status, abdominal pain women, abdominal pain men, vaginal bleeding, weakness, fever, dyspnea, syncope, headache, dizziness, GI bleed, back pain, seizure, CVA, palpatations, mental health, musculoskeletal)? @ -Differential Abdominal Pain Women: Appendicitis, Cholecystitis, diverticulosis, ischemic bowel, pancreatitis, hepatitis, UTI, gastroenteritis, AAA, incarcerated hernia, bowel obstruction, constipation, inflammatory bowel, hepatitis, peptic ulcer disease, splenic infarction, perforated viscus, vulvitis, ovarian torsion, PID, kidney stone, placenta abruption, this is not meant to be an all-inclusive list EKG interpreted by me (3pts min.). @ -EKG interpreted me showing a sinus bradycardia [address] or T wave changes. [place] 170, QRS 90, QT/QTc 490/463. X-rays interpreted by me (1pt min.). @ -None done CT interpreted by me (1pt min.). @ -CT abdomen pelvis interpreted me showing findings consistent with enteritis. U/S interpreted by me (1pt. min.). @ -None done What testing was considered but not performed or refused? (CT, X-rays, U/S, la bs)? Why? @ -None What meds were considered but not given or refused? Why? @ -None Did you discuss the management of the patient with other professionals (professionals i.e. , PA, [facility] [facility] [facility], lab, RT, psych nurse, social welfare clerk, recreation instructor, teacher, grant officer, family preservation caseworker)? Give summary @ -No Was smoking cessation discussed for >3mins.? @ -No Was critical care preformed (if so, how long)? @ -No Were there social determinants of health that impacted care today? How? (Homelessness, low income, unemployed, alcoholism, drug addiction, transportation, low edu. Level, literacy, decrease access to med. care, custodial, rehab)? @ -No Was there de-escalation of care discussed even if they declined (Discuss DNR or withdrawal of care, Hospice)? DNR status @ -No What co-morbidities impacted this encounter? (DM, HTN, Smoking, COPD, CAD, Cancer, CVA, ARF, Chemo, Hep., AIDS, mental health diagnosis, sleep apnea, morbid obesity)? @ -None Was patient admitted / discharged? Hospital course, mention meds given and route, prescriptions, significant lab abnormalities, going to OR and other pertinent info. @ -Discharge 58-year-old female presented to the ED with acute onset of diffuse abdominal pain worse in the upper abdomen with some associated nausea vomiting diarrhea. Laboratory studies reviewed. Labs including CBC, CMP, UA unremarkable. CT abdomen pelvis reviewed which showed findings consistent with enteritis. Patient provided analgesics and antiemetics here with significant improvement of symptoms. Symptoms likely viral in nature. Discharged home with prescriptions for Motrin, Tylenol, Zofran advise close follow-up with her PCP. Discussed return precautions with patient who verbalized agreement. Undiagnosed new problem with uncertain prognosis? @ -No Drug Therapy requiring intensive monitoring for toxicity (Heparin, Nitro, Insulin, Cardizem)? @ -No Were any procedures done? @ -No Diagnosis/symptom? @ -Gastroenteritis Acute, or Chronic, or Acute on Chronic? @ -Acute Uncomplicated (without systemic symptoms) or Complicated (systemic symptoms)? @ -Uncomplicated Side effects of treatment? @ -No Exacerbation, Progression, or Severe Exacerbation? @ -No Poses a threat to life or bodily function? How? (Chest pain, [place], [place], pneumonia, PE, COPD, DKA, ARF, appy, cholecystitis, CVA, Diverticulitis, Homicidal, Suicidal, threat to staff... and all critical care pts) @ -No (Bo Gramajo) - Lab Data Lab Results 07/29/23 07/29/23 07/29/23 Range/Units 17:11 17:11 17:11 WBC 13.4 H (3.8-10.6) k/uL RBC 5.09 (3.80-5.40) m/uL Hgb 14.7 (11.4-16.0) gm/dL Hct 47.5 H (34.0-46.0) % MCV 93.2 (80.0-100.0) fL MCH 28.9 (25.0-35.0) pg MCHC 31.0 (31.0-37.0) g/dL RDW 13.8 (11.5-15.5) % Plt Count 345 (150-450) k/uL MPV 7.7 Neutrophils % 86 % Lymphocytes % 11 % Monocytes % 2 % Eosinophils % 1 % Basophils % 1 % Neutrophils # 11.4 H (1.3-7.7) k/uL Lymphocytes # 1.4 (1.0-4.8) k/uL Monocytes # 0.3 (0-1.0) k/uL Eosinophils # 0.1 (0-0.7) k/uL Basophils # 0.1 (0-0.2) k/uL Sodium 141 (137-145) mmol/L Potassium 3.9 (3.5-5.1) mmol/L Chloride 107 (98-107) mmol/L Carbon Dioxide 23 (22-30) mmol/L Anion Gap 11 mmol/L BUN 11 (7-17) mg/dL Creatinine 0.71 (0.52-1.04) mg/dL Est GFR (CKD-EPI)AfAm >90 (>60 ml/min/1.73 sqM) Est GFR (CKD-EPI)NonAf >90 (>60 ml/min/1.73 sqM) Glucose 132 H (74-99) mg/dL Calcium 9.6 (8.4-10.2) mg/dL Magnesium 1.8 (1.6-2.3) mg/dL Total Bilirubin 0.6 (0.2-1.3) mg/dL AST 22 (14-36) U/L ALT 16 (4-34) U/L Alkaline Phosphatase 120 (38-126) U/L Total Protein 7.0 (6.3-8.2) g/dL Albumin 4.5 (3.5-5.0) g/dL Amylase 44 (30-110) U/L Lipase 42 (23-300) U/L Urine Color Urine Appearance (Clear) Urine pH (5.0-8.0) Ur Specific [place] (1.001-1.035) Urine Protein (Negative) Urine Glucose (UA) (Negative) Urine Ketones (Negative) Urine Blood (Negative) Urine Nitrite (Negative) Urine Bilirubin (Negative) Urine Urobilinogen (<2.0) mg/dL Ur Leukocyte Esterase (Negative) Influenza Type A (PCR) Not Detected (Not Detectd) Influenza Type B (PCR) Not Detected (Not Detectd) RSV (PCR) Not Detected (Not Detectd) SARS-CoV-2 (PCR) Not Detected (Not Detectd) 07/29/23 Range/Units 18:54 WBC (3.8-10.6) k/uL RBC (3.80-5.40) m/uL Hgb (11.4-16.0) gm/dL Hct (34.0-46.0) % MCV (80.0-100.0) fL MCH (25.0-35.0) pg MCHC (31.0-37.0) g/dL RDW (11.5-15.5) % Plt Count (150-450) k/uL MPV Neutrophils % % Lymphocytes % % Monocytes % % Eosinophils % % Basophils % % Neutrophils # (1.3-7.7) k/uL Lymphocytes # (1.0-4.8) k/uL Monocytes # (0-1.0) k/uL Eosinophils # (0-0.7) k/uL Basophils # (0-0.2) k/uL Sodium (137-145) mmol/L Potassium (3.5-5.1) mmol/L Chloride (98-107) mmol/L Carbon Dioxide (22-30) mmol/L Anion Gap mmol/L BUN (7-17) mg/dL Creatinine (0.52-1.04) mg/dL Est GFR (CKD-EPI)AfAm (>60 ml/min/1.73 sqM) Est GFR (CKD-EPI)NonAf (>60 ml/min/1.73 sqM) Glucose (74-99) mg/dL Calcium (8.4-10.2) mg/dL Magnesium (1.6-2.3) mg/dL Total Bilirubin (0.2-1.3) mg/dL AST (14-36) U/L ALT (4-34) U/L Alkaline Phosphatase (38-126) U/L Total Protein (6.3-8.2) g/dL Albumin (3.5-5.0) g/dL Amylase (30-110) U/L Lipase (23-300) U/L Urine Color Colorless Urine Appearance Clear (Clear) Urine pH 7.0 (5.0-8.0) Ur Specific [place] 1.012 (1.001-1.035) Urine Protein Negative (Negative) Urine Glucose (UA) Negative (Negative) Urine Ketones 1+ H (Negative) Urine Blood Negative (Negative) Urine Nitrite Negative (Negative) Urine Bilirubin Negative (Negative) Urine Urobilinogen <2.0 (<2.0) mg/dL Ur Leukocyte Esterase Negative (Negative) Influenza Type A (PCR) (Not Detectd) Influenza Type B (PCR) (Not Detectd) RSV (PCR) (Not Detectd) SARS-CoV-2 (PCR) (Not Detectd) Disposition <Sandhya Tobar - Last Filed: 07/29/23 15:41> Is patient prescribed a controlled substance at d/c from ED?: No Time of Disposition: 19:27 <Bo Gramajo - Last Filed: 07/29/23 19:27> Clinical Impression: Gastroenteritis Disposition: HOME SELF-CARE Condition: Good Instructions (If sedation given, give patient instructions): Gastroenteritis (ED) Additional Instructions: Please return to the Emergency Department if symptoms worsen or any other concerns. Please follow-up with your primary care provider. Prescriptions: Ibuprofen [Motrin] 600 mg PO Q8HR PRN #30 tab PRN Reason: Pain Acetaminophen Tab [Tylenol] 500 mg PO Q6H #60 tablet Ondansetron Odt [Zofran Odt] 4 mg PO Q8HR PRN #10 tab PRN Reason: Nausea Referrals: Giana Morse MD [Primary Care Provider] - 1-2 days
[2023-07-29] MEDS: SODIUM CHLORIDE 0.9% 1,000 ML IV STA (16:22)
[2023-07-29] MEDS: ONDANSETRON 4 MG/2 ML VIAL IVP STA (16:22)
[2023-07-29] MEDS: HYDROmorphone 1 MG/ML 1 ML SYRINGE IVP STA (16:40)
[2023-07-29 17:39] LABS: Basophils # (A) 0.1 k/uL (0-0.2); Basophils % (A) 1 %; Eosinophils # (A) 0.1 k/uL (0-0.7); Eosinophils % (A) 1 %; HCT 47.5 % (34.0-46.0); HGB 14.7 gm/dL (11.4-16.0); Lymphocytes # (A) 1.4 k/uL (1.0-4.8); Lymphocytes % (A) 11 %; MCH 28.9 pg (25.0-35.0); MCV 93.2 fL (80.0-100.0); Mean Platelet Volume 7.7; Monocytes # (A) 0.3 k/uL (0-1.0); Monocytes % (A) 2 %; Neutrophils # (A) 11.4 k/uL (1.3-7.7); Neutrophils % (A) 86 %; Platelet Count 345 k/uL (150-450); RBC 5.09 m/uL (3.80-5.40); RDW 13.8 % (11.5-15.5); WBC 13.4 k/uL (3.8-10.6)
[2023-07-29 18:01] LABS: ALT 16 U/L (4-34); AST 22 U/L (14-36); African American GFR (CKD) >90 (>60 ml/min/1.73 sqM); Albumin 4.5 g/dL (3.5-5.0); Alkaline Phosphatase 120 U/L (38-126); Amylase 44 U/L (30-110); Anion Gap 11 mmol/L; Blood Urea Nitrogen 11 mg/dL (7-17); Calcium 9.6 mg/dL (8.4-10.2); Carbon Dioxide 23 mmol/L (22-30); Chloride 107 mmol/L (98-107); Glucose 132 mg/dL (74-99); Lipase 42 U/L (23-300); Magnesium 1.8 mg/dL (1.6-2.3); Non-African American GFR(CKD) >90 (>60 ml/min/1.73 sqM); Potassium 3.9 mmol/L (3.5-5.1); Sodium 141 mmol/L (137-145); Total Bilirubin 0.6 mg/dL (0.2-1.3)
--- NOTE | 2023-07-29 18:01 | US ---
EXAMINATION TYPE: US gallbladder DATE OF EXAM: 07/29/2023 COMPARISON: NONE CLINICAL INDICATION: Female, 58 years old with history of RUQ pain; Pain and nausea TECHNIQUE: Multiple sonographic images of the right upper quadrant are obtained. FINDINGS: EXAM MEASUREMENTS: Liver Length: 16.7 cm Gallbladder Wall: .3 cm CBD: .5 cm Right Kidney: 9.6 x 4.6 x 5.0 cm KILN REMOVER NOTES: Pancreas: Tail obscured by overlying bowel gas Liver: Increased attenuation Gallbladder: Ringdown visualized anterior wall. Evidence for sonographic Grant's sign: no CBD: wnl Right Kidney: No hydronephrosis or masses seen IMPRESSION: No discrete abnormality seen.
--- NOTE | 2023-07-29 18:46 | CT ---
EXAMINATION TYPE: CT abdomen pelvis w con DATE OF EXAM: 07/29/2023 COMPARISON: None HISTORY: N/V/D, LLQ & RLQ abdominal pain. CT DLP: 988 mGycm CONTRAST: CT scan of the abdomen and pelvis is performed without Oral Contrast and with IV Contrast, patient in jected with 100 ml mL of Isovue 300. FINDINGS: LUNG BASES-: No visible nodule. No infiltrate. LIVER/GB: No calcified gallstones. No space occupying hepatic lesion. Biliary tree is of normal ca liber. PANCREAS: No inflammation. No distinct mass. SPLEEN: No splenic enlargement. No lesion seen. ADRENALS: No nodule. No thickening. KIDNEYS/BLADDER: No hydronephrosis. No nephrolithiasis. No distinct renal mass. Urinary bladder g rossly unremarkable. BOWEL: Normal appendix. Normal bowel caliber. No inflammation. Mild sigmoid diverticulosis without diverticulitis. Proximal small bowel distention and mild wall thickening may reflect enteritis. GENITAL ORGANS: Hysterectomy changes. No adnexal masses present. LYMPH NODES: No greater than 1cm abdominal or pelvic lymph nodes are appreciated. AORTA: No significant abnormality. OSSEOUS STRUCTURES: No significant abnormality is seen. OTHER: No significant additional abnormality is seen. IMPRESSION: 1. Proximal small bowel distention and mild wall thickening may reflect enteritis. Otherwise unremark able study.
[2023-07-29 19:07] LABS: Appearance,Urine Clear (Clear); Bilirubin,Urine Negative (Negative); Blood,Urine Negative (Negative); Color,Urine Colorless; Glucose,Urine (UA) Negative (Negative); Ketones,Urine 1+ (Negative); Leukocyte Esterase,Urine Negative (Negative); Nitrite,Urine Negative (Negative); Protein,Urine Negative (Negative); Specific Gravity,Urine 1.012 (1.001-1.035); Urobilinogen,Urine <2.0 mg/dL (<2.0)
[2023-07-29] MEDS: ONDANSETRON 4 MG ODT STARTER PACK 2 TAB BTL PO STA (20:09)
[2023-07-29 20:22] VITALS: BP 122/76; PULSE 56; TEMP 98.1
== END 2023-07-29 20:16 | disposition home or self-care (01) ==
LOC: EC 15:19
DX: K52.9 Noninfective gastroenteritis and colitis, unspecified (principal); R00.1 Bradycardia, unspecified; Z11.52 Encounter for screening for COVID-19; Z88.5 Allergy status to narcotic agent; Z91.018 Allergy to other foods; Z91.09 Other allergy status, other than to drugs and biological substances
CPT/HCPCS: 99285; 96374; 96375; 96361; 36415; 93005; 80053; 82150; 83690; 83735; 85025; 81003; 87636; 76705; 74177; J2405; J1170; S0119; Q9967

== ENCOUNTER → 2023-11-28 | Outpatient (CLI) | payer OTHER ==
--- NOTE | 2023-11-30 09:44 | MM ---
Reason for Exam: Screening (asymptomatic). Last mammogram was performed 1 year(s) and 1 month(s) ago. Patient History: Menarche at age 11. First Full-Term at age 14. Left ovary removed at age 42. Right ovary removed at age 42. Hysterectomy at age 42. Postmenopausal. Patient used Hormonal Contraceptives for 4 years. Risk Values: Ashley 5 year model risk: 1.0%. NCI Lifetime model risk: 5.3%. Prior Study Comparison: 09/11/2020 Bilateral Screening Mammogram, [facility]. 09/21/2021 Bilateral MG 3D screening mammo w/cad, [facility]. 10/26/2022 Bilateral MG 3D screening mammo w/cad, [facility]. Tissue Density: There are scattered areas of fibroglandular density. Findings: Analyzed By CAD. There is no suspicious group of microcalcifications or new suspicious mass in either breast. Overall Assessment: Negative, BI-RAD 1 Management: Screening Mammogram of both breasts in 1 year. . Patient should continue monthly self-breast exams. A clinical breast exam by your physician is recommended on an annual basis. This exam should not preclude additional follow-up of suspicious palpable abnormalities. Note on Ashley scores and lifetime risk: 1. A Ashley score greater than 3% is considered moderate risk. If this is the case, consider specialist referral to assess eligibility for a risk reducing agent. 2. If overall lifetime risk for the development of breast cancer is 20% or higher, the patient may qualify for future screening with alternating mammogram and breast MRI. [facility], , 11/30/2023 9:42 AM. Electronically signed and approved by: Serg Whipple M.D. Radiologis
== END | disposition home or self-care (01) ==
LOC: RADMAMWWP 08:05
PROVIDERS: ATTEND Pediatrics
CPT/HCPCS: 77063; 77067